=== PATIENT | female | born 1960 | race Caucasian/White ===

== ENCOUNTER → 2017-08-26 | Outpatient (CLI) | payer OTHER ==
[~2017-08-26] MED LIST: ESTR0.45 PO; IOHEXOL 240 MG/ML 50ML VIAL. ONE; IOHEXOL 240 MG/ML 50ML VIAL. PO ONE; IOHEXOL 300 MG/ML 75 ML VIAL. IV ONE; PROG50VI IM
[2017-08-26 13:01] LABS: BASO # 0.1 x10^3/uL (0.0-0.2); BASO % 1 % (0-3); EOS # 0.1 x10^3/uL (0.0-0.7); EOS % 1 % (0-3); HEMATOCRIT 41.6 % (36.0-47.0); HEMOGLOBIN 13.9 g/dL (12.0-15.5); LYMPH # 1.6 x10^3/uL (1.0-4.8); LYMPH % 22 % (24-48); MEAN CORPUSCULAR HEMOGLOBIN 28 pg (25-35); MEAN CORPUSCULAR HGB CONC 33 g/dL (31-37); MEAN CORPUSCULAR VOLUME 83 fL (79-100); MONO # 0.6 x10^3/uL (0.0-1.1); MONO % 8 % (0-9); NEUT # 5.2 x10^3uL (1.8-7.7); NEUT % 68 % (31-73); PLATELET COUNT 244 x10^3/uL (140-400); RED BLOOD COUNT 4.99 x10^6/uL (3.50-5.40); RED CELL DISTRIBUTION WIDTH 14.7 % (11.5-14.5); WHITE BLOOD COUNT 7.6 x10^3/uL (4.0-11.0)
[2017-08-26 13:03] LABS: CALCIUM 9.2 mg/dL (8.5-10.1); CREATININE 0.9 mg/dL (0.6-1.0); GFR 64.3; POTASSIUM 4.1 mmol/L (3.5-5.1)
--- NOTE | 2017-08-26 14:16 | RAD ---
Examination: CT of the abdomen pelvis with oral and IV contrast HISTORY: History of right lower quadrant abdominal pain, vomiting, diarrhea COMPARISON: None available TECHNIQUE: Axial CT images of the abdomen pelvis were performed without IV contrast. Coronal and sagittal reformats performed Exposure: One or more of the following individualized dose reduction techniques were utilized for this examination: 1. Automated exposure control 2. Adjustment of the mA and/or kV according to patient size 3. Use of iterative reconstruction technique FINDINGS: The bibasilar lungs are clear. No evidence of free air identified in the abdomen. The visualized liver, spleen, adrenals grossly appears unremarkable. The gallbladder is mildly distended. The stomach is mildly distended. The visualized pancreas grossly appears unremarkable. Stomach is not distended. Appendix is dilated measuring up to 1 cm in transverse dimension with moderate surrounding extremity fat stranding likely acute appendicitis. A small appendicolith identified in the proximal appendix. Feces and gas noted in the colon Urinary bladder is mildly distended The bilateral kidneys enhance symmetrically. No evidence of hydronephrosis Mild aortic atherosclerosis Moderate degenerative changes thoracolumbar spine. IMPRESSION: Findings consistent with acute appendicitis. Katie at Dr. Nguyen's office was informed at time of dictation. Electronically signed by: Arvind Joe MD (08/26/2017 2:12 PM) [id number]
== END | disposition home or self-care (01) ==
LOC: CT 12:19
PROVIDERS: ATTEND Specialist
DX: I70.0 Atherosclerosis of aorta (principal); N32.89 Other specified disorders of bladder; E78.5 Hyperlipidemia, unspecified; E03.9 Hypothyroidism, unspecified
CPT/HCPCS: 36415; 74177; 80048; 85025; Q9966; Q9967